=== PATIENT | female | born 2005 | race Caucasian/White ===

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

== ENCOUNTER 2025-07-27 12:08 | Emergency (ER) | payer MEDICAID ==
[~2025-07-27] VITALS: Ht 165.1 cm; Wt 88.6 kg
[~2025-07-27 12:08] MED LIST changes: +ALBU6.7H14 INH
--- NOTE | 2025-07-27 12:45 | Physician Documentation ---
History of Present Illness ~ Chief Complaint: Arm Pain Stated Complaint: R ARM PAIN Time Seen by MD: 14:02 Primary Medical Doctor: ROSALIA MEDRANO Patient is a very pleasant 19-year-old female that presents to the emergency department for evaluation of right arm pain. Patient reports that her arm started hurting last night around 10:00 p.m.. Patient reports he went to bed arm felt better woke up today with her arm continuing to hurt. Patient has good range of motion at this time. Patient denies any traumatic injury. Patient denies any fever chills nausea vomiting diarrhea at this time. Patient denies any other symptoms at this time. Tetanus within 5 years: Yes Medication Reconciliation Allergies: Coded Allergies: No Known Allergies (Unverified , 07/27/25) Scheduled Albuterol Sulfate (Proventil Hfa), 2 PUFFS INH Q6H Neomy Sulf/Polymyx B Sulf/Hc (Cortisporin Otic Suspension), 5 DROP OT QID Past Medical History Past Medical History: No Pertinent History Past Surgical History: no surgical history Alcohol Use: None Drug Use: none Lives with: Family Lives In: Home Occupation: child Physical Exam Vital Signs: RN Vital Signs have been reviewed: Yes, Temperature: 97.6, Source: Temporal, Heart Rate: 70, Respiratory Rate: 18, BP: 125/81, Pulse Oximetry: 99, Weight: 88.640 General Appearance: alert, WD/WN, mild distress, other EENT: PERRL/EOMI Neck: normal inspection Respiratory: lungs clear Chest: no accessory muscle use Cardiovascular: normal peripheral pulses Gastrointestinal: non-tender Back: other (Tenderness to palpation over the trigger point right scapula) Shoulder: soft tissue tenderness Elbow/Forearm: normal inspection Wrist: normal inspection Skin: normal color Lymphatic: normal inspection Neurologic: oriented x4 Psychiatric: normal mood/affect Progress Results/Orders Results/Orders Vital Signs 07/27/25 12:25 Temp 97.6 Pulse 70 Resp 18 B/P (MAP) 125/81 Pulse Ox 99 Medical Decision Making Additional information obtaine: N/A Findings Examination history consistent with a trigger point spasm. Will recommend anti- inflammatory and antispasmodic for outpatient management. All differentials below considered. Patient's safely discharged from the emergency department. General Diff Dx:Considerations: Include: Abrasion, Contusion, Fracture, Hematoma, Laceration, Malunion, Neurovascular injury, Open fracture, Sprain, Ulcer, Other Shoulder Diff Dx:Consideration: Include: AC separation, Adhesive capsulitis, Arthritis, Bicipital tendonitis, Calcific tendonitis, Cervical disc disease, Contusion, Other (Trigger point) Elbow Diff Dx:Considerations: Include: Other (Noncontributory noncontributory) Wrist Diff Dx:Considerations: Include: Other (Noncontributory) Hand Diff Dx:Considerations: Include: Other (Laboratory) Finger Diff Dx:Considerations: Include: Other Departure Disposition: 01 HOME / SELF CARE / HOMELESS Impression: Primary Impression: Trigger point with back pain Condition: Stable Additional Instructions: Examination history is consistent with a trigger point spasm. Please begin m edications as directed Provided you a note for a couple of days off. Make follow up appointment with the primary care physician and after the holiday and/or return in the emergency department if worse. Thank you for visiting [facility]. Departure Forms: Excuse form Work or School Excused From: Work Excuse beginning now through the following date: Jul 29, 2025 Referrals: NO PRIMARY CARE PROVIDER (PCP) Prescriptions Ibuprofen* (Motrin*) 400 Mg Tablet 1 TAB PO Q8H for pain or fever for 10 Days, #30 TAB Prov: SANIYA WEBER 07/27/25 Tizanidine Hcl (ZANAFLEX) 4 Mg Tablet 1 TAB PO Q8H for 30 Days, #30 TAB 0 Refills Prov: SANIYA WEBER 07/27/25 Education Educated: Patient Educated regarding: diagnosis, treatment, prognosis, need for follow up Signature Scribe Signature: . Attestation: . MERRILL AVERY Jul 27, 2025 12:45 SANIYA WEBER Jul 27, 2025 14:25
[2025-07-27] MEDS ORDERED: IBUP-1984 PO (14:27)
[2025-07-27] MEDS ORDERED: TIZA4TAB11 PO (14:27)
[2025-07-27 14:37] VITALS: BP 123/79; PULSE 65; RESP 17; TEMP 97.6; O2SAT 99
== END 2025-07-27 14:38 | disposition home or self-care (01) ==
LOC: ER 12:08
DX: M54.9 Dorsalgia, unspecified (principal); M79.601 Pain in right arm; Z79.899 Other long term (current) drug therapy
CPT/HCPCS: 99283